=== PATIENT | female | born 1950 | race Caucasian/White ===

== ENCOUNTER 2025-04-20 07:57 | Day surgery (SDC) | payer MEDICARE ==
[2025-04-20] MEDS ORDERED: Dexamethasone 4 MG/ML SDV IV ONE (07:58)
[2025-04-20] MEDS ORDERED: Midazolam 1 MG/ML 2 ML SDV IV ONE (07:58)
[2025-04-20] MEDS ORDERED: Sodium Chloride 0.9% 10 ML Syringe IV ONE (07:58)
[2025-04-20] MEDS ORDERED: Diclofenac Sodium 0.1% Ophth Soln 5 ML Bottle EYELF SCH (08:00)
[2025-04-20] MEDS ORDERED: Ondansetron 4 MG/2 ML SDV IVPUSH PRN (08:00)
[2025-04-20] MEDS ORDERED: Apraclonidine 0.5% Ophth Soln 5 ML Bot EYELF SCH (08:00)
[2025-04-20] MEDS ORDERED: Dexamethasone/Neomycin/Polymyxin B Ophth Oint 3.5 GM Tube EYELF ONE (08:00)
[2025-04-20] MEDS: Moxifloxacin 0.5% Ophth Soln 3 ML Bottle EYELF ONE (08:31)
[2025-04-20] MEDS: Povidone-Iodine 5% Sterile Ophth Soln 30 ML Bottle EYELF ONE ×2 (08:31→08:57)
[2025-04-20] MEDS: Timolol Maleate 0.5% Ophth Soln 5 ML Bottle EYELF ONE (08:33)
[2025-04-20] MEDS: Phenylephrine 10% Ophth Soln 5 ML Bot EYELF ONE (08:33)
[2025-04-20] MEDS: Cataract Ophth Solution EYELF ONE (08:34)
[2025-04-20] MEDS: Apraclonidine 0.5% Ophth Soln 5 ML Bot EYELF ONE ×2 (08:58→09:14)
[2025-04-20] MEDS: Diclofenac Sodium 0.1% Ophth Soln 5 ML Bottle EYELF ONE ×2 (08:59→09:14)
[2025-04-20] MEDS: Dexamethasone/Neomycin/Polymyxin B Ophth Oint 3.5 GM Tube EYELF ONE ×2 (09:00→09:15)
[2025-04-20] MEDS ORDERED: Dexamethasone 4 MG/ML SDV ONE (10:51)
== END 2025-04-20 10:00 | disposition home or self-care (01) ==
LOC: DL.SDS 07:57
PROVIDERS: ATTEND Ophthalmology
DX: H25.812 Combined forms of age-related cataract, left eye (principal); I10 Essential (primary) hypertension; E78.5 Hyperlipidemia, unspecified; E03.9 Hypothyroidism, unspecified; Z88.8 Allergy status to other drugs, medicaments and biological substances; Z79.890 Hormone replacement therapy; Z79.82 Long term (current) use of aspirin
CPT/HCPCS: 66984; A9270; J1100; J2003; J2250; J3370; J3490; V2632

== ENCOUNTER 2025-05-04 07:36 | Day surgery (SDC) | payer MEDICARE ==
[2025-05-04] MEDS ORDERED: Sodium Chloride 0.9% 10 ML Syringe IV ONE (07:37)
[2025-05-04] MEDS ORDERED: Dexamethasone 4 MG/ML SDV IV ONE (07:37)
[2025-05-04] MEDS ORDERED: Midazolam 1 MG/ML 2 ML SDV IV ONE (07:37)
[2025-05-04] MEDS: Moxifloxacin 0.5% Ophth Soln 3 ML Bottle EYERT ONE (08:18)
[2025-05-04] MEDS: Phenylephrine 10% Ophth Soln 5 ML Bot EYERT ONE (08:20)
[2025-05-04] MEDS: Povidone-Iodine 5% Sterile Ophth Soln 30 ML Bottle EYERT ONE ×2 (08:20→09:57)
[2025-05-04] MEDS: Timolol Maleate 0.5% Ophth Soln 5 ML Bottle EYERT ONE (08:21)
[2025-05-04] MEDS: Cataract Ophth Solution EYERT ONE (08:22)
[2025-05-04] MEDS ORDERED: Ondansetron 4 MG/2 ML SDV IVPUSH PRN (09:00)
[2025-05-04] MEDS: Dexamethasone/Neomycin/Polymyxin B Ophth Oint 3.5 GM Tube EYERT ONE (09:50)
[2025-05-04] MEDS: Apraclonidine 0.5% Ophth Soln 5 ML Bot EYERT ONE (10:12)
[2025-05-04] MEDS: Diclofenac Sodium 0.1% Ophth Soln 5 ML Bottle EYERT ONE (10:12)
== END 2025-05-04 11:05 | disposition home or self-care (01) ==
LOC: DL.SDS 07:36
PROVIDERS: ATTEND Ophthalmology
DX: H25.811 Combined forms of age-related cataract, right eye (principal)
CPT/HCPCS: 00142; 66984; 99100; A9270; J1100; J2003; J2250; J3373; V2632; J3490